=== PATIENT | female | born 1975 | race Caucasian/White ===

== ENCOUNTER 2018-02-13 13:55 | Emergency (ER) | payer OTHER ==
[~2018-02-13] VITALS: Ht 157.5 cm; Wt 54.4 kg
[2018-02-13 14:53] VITALS: BP 100/69
[2018-02-13] MEDS ORDERED: IBUPROFEN 800 MG TAB PO ONE (15:30)
== END 2018-02-13 15:25 | disposition home or self-care (01) ==
LOC: ER 13:55
DX: S93.401A Sprain of unspecified ligament of right ankle, initial encounter (principal); X58.XXXA Exposure to other specified factors, initial encounter; Y93.01 Activity, walking, marching and hiking; Y92.89 Other specified places as the place of occurrence of the external cause; Y99.8 Other external cause status
CPT/HCPCS: 73610